=== PATIENT | female | born 1950 | race African-American/Black ===

== ENCOUNTER 2020-04-12 13:12 | Outpatient (REF) | payer MEDICARE, SELFPAY | END 2020-04-12 13:13 | disposition home or self-care (01) | LOC: HO.LAB 13:12 | PROVIDERS: Visit Provider Internal Medicine | DX: Z20.828 Contact with and (suspected) exposure to other viral communicable diseases (principal) | CPT/HCPCS: C9803; U0003 ==

== ENCOUNTER 2020-05-22 16:42 | Outpatient (REF) | payer MEDICARE, SELFPAY | END 2020-05-22 16:43 | disposition home or self-care (01) | LOC: HO.LAB 16:42 | PROVIDERS: Visit Provider Internal Medicine | DX: Z20.828 Contact with and (suspected) exposure to other viral communicable diseases (principal) | CPT/HCPCS: C9803; U0003 ==

== ENCOUNTER 2022-12-30 16:11 | Emergency (ER) | payer MEDICARE, SELFPAY ==
--- NOTE | ~2022-12-30 | XR_ITS ---
EXAMINATION: XR CHEST CLINICAL INFORMATION: Covid infection. Chest pain. COMPARISON: Previous chest x-ray most recent June 2017 TECHNIQUE: 2 views of the chest were obtained. FINDINGS: No significant abnormality is noted involving the heart, lungs, mediastinum, bony thorax or soft tissues. XR/XR chest 2V IMPRESSION: Unremarkable examination.
--- NOTE | 2022-12-30 17:09 | ED.GENADULT ---
HPI - General Adult General Chief complaint: Chest Pain Stated complaint: covid + at home Time Seen by Provider: 12/30/22 18:34 Source: patient Mode of arrival: ambulatory Limitations: no limitations History of Present Illness HPI narrative: Patient's history of diabetes, asthma, coronary artery disease status post cardiac stents x2 last stent was 3 years ago pain coughing feeling weak for last 2 days got worse today checked the COVID at home which was positive. When patient came in triage patient noticed slight chest tightness with dry cough. Which lasted for half an hour no significant shortness of breath no palpitation no diaphoresis no nausea or vomiting Related Data Previous Rx's Medication Instructions Recorded dexamethasone 6 mg tablet 6 mg PO DAILY #6 tabs 12/30/22 Allergies Allergy/AdvReac Type Severity Reaction Status Date / Time No Known Allergies Allergy Verified 12/30/22 17:12 [No Known Allergies*] Review of Systems Review of Systems: Yes all other systems are reviewed and are negative PMFSH Past Medical History Medical History Asthma Diabetes mellitus Surgical History Status post insertion of drug-eluting stent into right coronary artery for coronary artery disease Social History Social History Advance Directives: No Advance Directives Information Provided: No Physical Exam ED Vital Signs: Vital Signs - 24 hr 12/30/22 17:10 12/30/22 18:36 12/30/22 19:42 Temperature 98.2 F 98.2 F 98.2 F Pulse Rate 96 101 H 87 Respiratory Rate 20 18 16 Blood Pressure 123/58 L 135/58 L 131/53 L Pulse Oximetry 99 98 98 Oxygen Delivery Method Room Air Room Air Room Air 12/30/22 21:27 Temperature 98.0 F Pulse Rate 89 Respiratory Rate 16 Blood Pressure 147/64 H Pulse Oximetry 97 Oxygen Delivery Method Room Air BMI result Body Mass Index 26.4 Appearance: Alert. Oriented X3. No acute distress. Eyes: No pallor or icterus ENT: Pharynx normal. Oral Mucosa moist Neck: Normal inspection. Neck supple. CVS: Normal heart rate and rhythm. Pulses normal. Respiratory: No respiratory distress. Equal air entry bilateral, no wheezing/rales/rhonchi prolonged expiration Abdomen: Soft and nontender. Bowel sounds are present, no mass palpable, no CVA tenderness Skin: Skin warm and dry. Normal skin color. Normal skin turgor. Extremities: No lower extremity edema. No calf tenderness Neuro: Oriented X 3. No motor deficit. No sensory deficit.No cerebellar signs , cranial nerves II-XII intact Course Course Course Narrative: RME performed by Natali Walker PA-C. Patient is a 72 year old assigned female at presenting to the emergency department with chest discomfort. Patient states that she had a positive COVID-19 test at home and has a history of heart problems, so she is concerned about her chest pain. Labs, imaging, swab, and EKG ordered. Patient placed back in the waiting room pending room availability and results. Medications Administered Discontinued Medications Generic Name Dose Route Start Last Admin Trade Name Freq PRN Reason Stop Dose Admin Albuterol Sulfate 2 puff 12/30/22 19:34 12/30/22 20:52 Albuterol Sulfate 90 Mcg 8 Gm Inhaler INHALE 12/30/22 19:35 2 puff ONCE ONE Administration Dexamethasone 6 mg 12/30/22 19:33 12/30/22 20:52 Dexamethasone 6 Mg Tablet PO 12/30/22 19:34 6 mg ONCE ONE Administration Medical Decision Making Medical Decision Making [facility] Narrative: Patient with COVID-19 had minor chest pain which lasted only for half an hour without any acute ischemic changes 2 sets of troponin without any delta change troponin at level was elevated likely troponin leak patient pain was atypical which was different from when she had stent placed patient feel better after albuterol treatment and Decadron discharge patient home Differential Diagnosis Differential Diagnoses: The differential diagnosis associated with the presentation includes COVID pneumonia/costochondritis/non-STEMI/STEMI/pulmonary emboli Lab Data [facility] Lab Attestation statement: I reviewed the patient's lab results. 12/30/22 17:21 12/30/22 17:21 Labs: Lab Results 12/30/22 12/30/22 12/30/22 Range/Units 17:21 17:21 17:21 WBC 6.2 (4.8-10.8) X10*3/uL RBC 4.32 (4.20-5.50) X10*6/uL Hgb 12.1 (12.0-16.0) g/dl Hct 37.8 (37.0-47.0) % MCV 87.5 (80.0-98.0) fL MCH 28.0 (27.0-33.0) pg MCHC 32.0 (31.0-35.0) g/dl RDW 13.2 (11.0-16.0) % Plt Count 329 (160-400) X10*3/uL MPV 9.9 (9.4-12.3) fL Immature Gran % (Auto) 0.2 (0.0-0.4) % Neut % (Auto) 69.5 (45-73) % Lymph % (Auto) 21.9 (20-40) % [place] % (Auto) 7.8 (2-11) % Eos % (Auto) 0.3 (0-4) % Baso % (Auto) 0.3 (0-2) % Lymph # (Auto) 1.4 (1.2-4.9) X10*3/uL [place] # (Auto) 0.5 (0.1-1.2) X10*3/uL Eos # (Auto) 0.0 (0.0-0.4) X10*3/uL Baso # (Auto) 0.0 (0.0-0.2) X10*3/uL Abs Immat Gran (auto) 0.01 (0.00-0.03) X10*3/uL Absolute Neuts (auto) 4.3 (2.0-8.3) x10*3/uL Absolute Nucleated RBC 0.000 (0.0-0.012) X10*3/uL Nucleated RBC % (auto) 0.0 (0.0-0.2) /100WBC Sodium 137 (135-145) mmol/L Potassium 4.8 (3.3-5.1) mmol/L Chloride 107 (96-108) mmol/L Carbon Dioxide 19 L (22-29) mmol/L Anion Gap 16 (12-20) BUN 17 H (9-16) mg/dL Creatinine 1.47 H (0.5-1.4) mg/dL Estim Creat Clear Calc 28.6 Estimated GFR 35 Random Glucose 246 H (60-115) mg/dL Calcium 10.0 (8.4-10.2) mg/dL Magnesium 1.8 (1.6-2.6) mg/dL Total Bilirubin 0.3 (0.0-1.0) mg/dL AST 38 H (5-31) U/L ALT 26 (0-31) U/L Alkaline Phosphatase 65 (39-117) U/L Total Creatine Kinase 234 H (26-140) U/L Troponin I High Sens 221.4 H* (<3.5-17.0) ng/L Total Protein 8.0 (6.5-8.0) g/dL Albumin 3.7 (3.5-5.0) g/dL COVID-19 (HNERRY) (Negative) COVID-19 Clin Com 12/30/22 12/30/22 Range/Units 17:21 20:35 WBC (4.8-10.8) X10*3/uL RBC (4.20-5.50) X10*6/uL Hgb (12.0-16.0) g/dl Hct (37.0-47.0) % MCV (80.0-98.0) fL MCH (27.0-33.0) pg MCHC (31.0-35.0) g/dl RDW (11.0-16.0) % Plt Count (160-400) X10*3/uL MPV (9.4-12.3) fL Immature Gran % (Auto) (0.0-0.4) % Neut % (Auto) (45-73) % Lymph % (Auto) (20-40) % [place] % (Auto) (2-11) % Eos % (Auto) (0-4) % Baso % (Auto) (0-2) % Lymph # (Auto) (1.2-4.9) X10*3/uL [place] # (Auto) (0.1-1.2) X10*3/uL Eos # (Auto) (0.0-0.4) X10*3/uL Baso # (Auto) (0.0-0.2) X10*3/uL Abs Immat Gran (auto) (0.00-0.03) X10*3/uL Absolute Neuts (auto) (2.0-8.3) x10*3/uL Absolute Nucleated RBC (0.0-0.012) X10*3/uL Nucleated RBC % (auto) (0.0-0.2) /100WBC Sodium (135-145) mmol/L Potassium (3.3-5.1) mmol/L Chloride (96-108) mmol/L Carbon Dioxide (22-29) mmol/L Anion Gap (12-20) BUN (9-16) mg/dL Creatinine (0.5-1.4) mg/dL Estim Creat Clear Calc Estimated GFR Random Glucose (60-115) mg/dL Calcium (8.4-10.2) mg/dL Magnesium (1.6-2.6) mg/dL Total Bilirubin (0.0-1.0) mg/dL AST (5-31) U/L ALT (0-31) U/L Alkaline Phosphatase (39-117) U/L Total Creatine Kinase (26-140) U/L Troponin I High Sens 256.0 H* (<3.5-17.0) ng/L Total Protein (6.5-8.0) g/dL Albumin (3.5-5.0) g/dL COVID-19 (HENRRY) Positive A (Negative) COVID-19 Clin Com See Note Independent Interpretation I performed an independent interpretation of an: EKG Interpretation: Normal sinus rhythm heart rate 91beats per minute normal interval normal axis LVH no acute ST T wave change no acute ischemia Discharge Plan Discharge Clinical Impression: COVID-19 Patient Disposition: Home, Self-Care Instructions: COVID-19 (Coronavirus Disease 2019) (ED) Additional Instructions: Social distancing as adv Drink plenty of fluids Continue to use albuterol inhaler Decadron as advised Report to ER if recurrence of chest pain Distanciamiento social chapin adv Beber mucho l?quido Contin?e usando el inhalador de albuterol Decadron chapin se recomienda Informar a urgencias si recurre el dolor tor?cico Prescriptions: New dexamethasone 6 mg tablet 6 mg PO DAILY Qty: 6 0RF Interventions: ED Discharge Assessment Last Done: 12/30/22 21:43 Discharge Date/Time: 12/30/22 21:44 Print Language: Irish
[2022-12-30 17:10] VITALS: BP 123/58; PULSE 96; RESP 20; TEMP 36.8; O2SAT 99; BMI 26.4
--- NOTE | 2022-12-30 17:10 | ECG_ITS ---
Test Reason : CHEST PAIN Blood Pressure : / mmHG Vent. Rate : 109 BPM Atrial Rate : 109 BPM P-R Int : 180 ms QRS Dur : 088 ms QT Int : 342 ms P-R-T Axes : 082 036 070 degrees QTc Int : 460 ms Sinus tachycardia Possible Anterior infarct , age undetermined Abnormal ECG When compared to the previous EKG of Poor R wave progression present. Referred By: Casa Bertrand Electronically Signed By:Horace Washburn
--- NOTE | 2022-12-30 17:24 | MHC.EDTECH ---
Labs collected and sent
[2022-12-30 17:27] LABS: MANUAL DIFF FLAG NO
[2022-12-30 17:47] LABS: Alanine Aminotransferase 26 U/L (0-31); Albumin Level 3.7 g/dL (3.5-5.0); Alkaline Phosphatase 65 U/L (39-117); Anion Gap 16 (12-20); Aspartate Amino Transferase 38 U/L (5-31); Bilirubin Total 0.3 mg/dL (0.0-1.0); Blood Urea Nitrogen 17 mg/dL (9-16); Carbon Dioxide 19 mmol/L (22-29); Chloride 107 mmol/L (96-108); Creatinine Clr Calc Pharmacy 28.6; Estimated Glomerular Filt Rate 35; Glucose Random 246 mg/dL (60-115); Magnesium 1.8 mg/dL (1.6-2.6); Potassium 4.8 mmol/L (3.3-5.1); Sodium 137 mmol/L (135-145)
[2022-12-30 17:50] LABS: Basophils Percent Auto 0.3 % (0-2); Eosinophils Percent Auto 0.3 % (0-4); Hematocrit 37.8 % (37.0-47.0); Hemoglobin 12.1 g/dl (12.0-16.0); Imm Gran Abs Auto 0.01 X10*3/uL (0.00-0.03); Imm Gran Pct Auto 0.2 % (0.0-0.4); Lymphocytes Absolute Auto 1.4 X10*3/uL (1.2-4.9); Lymphocytes Percent Auto 21.9 % (20-40); Mean Corpuscular Volume 87.5 fL (80.0-98.0); Mean Platelet Volume 9.9 fL (9.4-12.3); Monocytes Absolute Auto 0.5 X10*3/uL (0.1-1.2); Monocytes Percent Auto 7.8 % (2-11); Neutrophils Absolute Auto 4.3 x10*3/uL (2.0-8.3); Neutrophils Percent Auto 69.5 % (45-73); Platelet Count 329 X10*3/uL (160-400); Red Blood Count 4.32 X10*6/uL (4.20-5.50); Red Cell Distribution Width 13.2 % (11.0-16.0); White Blood Count 6.2 X10*3/uL (4.8-10.8)
[2022-12-30 17:54] LABS: COVID-19 Test Positive (Negative); IDNOW Serial# 55D5AD1C
[2022-12-30 18:07] LABS: Troponin-I High Sensitivity 221.4 ng/L (<3.5-17.0)
[2022-12-30 18:36] VITALS: BP 135/58; PULSE 101; RESP 18; TEMP 36.8; O2SAT 98
--- NOTE | 2022-12-30 18:37 | MHC.EDTECH ---
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
--- NOTE | 2022-12-30 19:10 | ECG_ITS ---
Test Reason : cp Blood Pressure : / mmHG Vent. Rate : 091 BPM Atrial Rate : 091 BPM P-R Int : 196 ms QRS Dur : 088 ms QT Int : 370 ms P-R-T Axes : 063 045 035 degrees QTc Int : 455 ms Normal sinus rhythm Minimal voltage criteria for LVH, may be normal variant ( [place] product ) Borderline ECG When compared to the previous EKG of No significant changes seen Referred By: Casa Bertrand Electronically Signed By:Horace Washburn
[2022-12-30 19:42] VITALS: BP 131/53; PULSE 87; RESP 16; TEMP 36.8; O2SAT 98
--- NOTE | 2022-12-30 19:52 | MHC.EDTECH ---
PATIENT REPEATED LABS DRAWN AND SENT TO LAB ,ALSO REPEATED EKG TAKEN AND WAS READ BY PROVIDER .
[2022-12-30] MEDS: Albuterol Sulfate 90 MCG 8 GM INHALER 2 PUFF INHALE (20:52)
[2022-12-30] MEDS: dexAMETHasone 6 MG TABLET PO (20:52)
[2022-12-30 21:27] VITALS: BP 147/64; PULSE 89; RESP 16; TEMP 36.7; O2SAT 97
== END 2022-12-30 21:44 | disposition home or self-care (01) ==
PROVIDERS: Physician Assistant Medical; Emergency Provider Internal Medicine
DX: U07.1 COVID-19 (principal); E11.9 Type 2 diabetes mellitus without complications
CPT/HCPCS: 36415; 71046; 80053; 82550; 83735; 84484; 85025; 87635; 93005; 99284; J8540

== ENCOUNTER → 2022-12-30 17:10 | Outpatient (BNV) | payer MEDICARE, SELFPAY | PROVIDERS: Emergency Provider Internal Medicine; Visit Provider Internal Medicine Cardiovascular Disease | DX: R00.0 Tachycardia, unspecified (principal); R07.9 Chest pain, unspecified | CPT/HCPCS: 93010 ==